=== PATIENT | female | born 1970 | race Hispanic/Latino ===

== ENCOUNTER 2017-11-04 20:43 | Inpatient (IN) | payer OTHER ==
[~2017-11-04] VITALS: Ht 162.6 cm; Wt 73.9 kg
[2017-11-04 21:16] LABS: BASOPHILS % (AUTO) 1.2 % (0.0-5.0); EOSINOPHILS % (AUTO) 0.7 % (0.0-8.0); HEMATOCRIT 34.3 % (36-48); LYMPHOCYTES % (AUTO) 25.3 % (21.0-51.0); MEAN CORPUSCULAR HEMOGLOBIN 29.1 pg (27.0-33.0); MEAN CORPUSCULAR HGB CONC 34.4 g/dL (32.0-36.0); MEAN CORPUSCULAR VOLUME 84.4 fL (79-99); MONOCYTES % (AUTO) 9.1 % (3.0-13.0); NEUTROPHILS % (AUTO) 63.7 % (40.0-77.0); PLATELET COUNT (AUTO) 418 K/uL (130-400); RED BLOOD CELL COUNT(AUTO) 4.06 MIL/uL (4.00-5.50); RED CELL DISTRIBUTION WIDTH 12.7 % (11.0-15.5); WHITE BLOOD COUNT (AUTO) 10.1 K/uL (4.8-10.8)
[2017-11-04 21:28] LABS: BILIRUBIN,URINE Negative (NEGATIVE); COLOR,URINE Yellow (YELLOW); GLUCOSE, URINE (UA) >=1000 mg/dL (NEGATIVE); KETONES,URINE 15 mg/dL (NEGATIVE); LEUKOCYTE ESTERASE ,URINE Moderate (NEGATIVE); NITRATE,URINE Negative (NEGATIVE); OCCULT BLOOD,URINE Negative (NEGATIVE); PH,URINE 5.5 (5.0-8.0); PROTEIN,URINE Trace (NEGATIVE)
[2017-11-04 21:33] LABS: INR 1.08 (0.85-1.15); PARTIAL THROMBOPLASTIN TIME 29.8 SEC (26.3-35.5); PROTHROMBIN TIME 11.3 SEC (9.6-11.6)
[2017-11-04 21:41] LABS: APPEARANCE,URINE SLIGHTLY CLOUDY (CLEAR)
[2017-11-04] MEDS ORDERED: SODIUM CHLORIDE 0.9% 1000ML 2,000 ML IV ONE (21:43)
[2017-11-04] MEDS ORDERED: ONDANSETRON HCL 4 MG/2 ML VIAL ONE (21:43)
[2017-11-04] MEDS ORDERED: ACETAMINOPHEN 325 MG TAB ONE (21:43)
[2017-11-04 21:50] LABS: CARBON DIOXIDE 27 mmol/L (21-32); CHLORIDE 93 mmol/L (101-111); CREATININE 0.7 mg/dL (0.5-1.5); GLOMERULAR FILTR. RATE CALC 95 mL/min (>60); GLUCOSE,RANDOM 296 mg/dL (70-105); POTASSIUM 3.4 mmol/L (3.5-5.1); SODIUM SERUM 133 mmol/L (136-145); UREA NITROGEN, BLOOD 8 mg/dL (7-18)
[2017-11-04 22:04] LABS: ALANINE AMINOTRANSFERASE 49 U/L (12-78); ALBUMIN 1.8 g/dL (3.5-5.0); ASPARTATE AMINOTRANSFERASE 35 U/L (10-37); BILIRUBIN,TOTAL 0.5 mg/dL (0.2-1.0); CREATINE KINASE MB < 0.5 ng/mL (0.5-3.6); CREATINE KINASE, TOTAL 22 U/L (21-232); MYOGLOBIN 22 ng/mL (10-92); TOTAL PROTEIN, SERUM 9.4 g/dL (6.0-8.3); TROPONIN I < 0.04 ng/mL (0.00-0.06)
[2017-11-04 22:19] LABS: BACTERIA,URINE Few /HPF (None Seen); RBC,URINE 0-1 /HPF (0-1); YEAST,URINE BUDDING Rare /HPF (None Seen)
[2017-11-04 22:20] LABS: MUCUS,URINE Rare LPF (None Seen); SQUAMOUS EPITHELIAL CELL,UR Few /LPF (0-2)
[2017-11-04] MEDS ORDERED: IOPAMIDOL-370 75 ML VIAL IV ONE (23:33)
[2017-11-05] VITALS (9 sets, daily range): BP systolic 115–155; BP diastolic 71–84
[2017-11-05] MEDS ORDERED: MORPHINE SULFATE 4 MG/1ML SYG ONE (00:33)
[2017-11-05] MEDS ORDERED: CEFTRIAXONE SODIUM 1 GM ONE (01:08)
[2017-11-05] MEDS ORDERED: WATER FOR INJECTION,STERILE 20 ML VIAL ONE (01:09)
[2017-11-05] MEDS ORDERED: METO25TA6 PO (04:03)
[2017-11-05] MEDS ORDERED: INSLAN SQ (04:03)
[2017-11-05] MEDS ORDERED: METF10004 PO (04:03)
[2017-11-05] MEDS ORDERED: ONDANSETRON HCL 4 MG/2 ML VIAL ONE (08:12)
[2017-11-05] MEDS ORDERED: DiphenhydrAMINE HCL 50 MG/ML VIAL IVP PRN (08:15)
[2017-11-05] MEDS ORDERED: DEXTROSE 50%-WATER 50 ML DISP.SYRIN IV PRN (08:15)
[2017-11-05] MEDS ORDERED: GUAIFENESIN SUGAR-FREE 100 MG/5 ML UDCUP PO PRN (08:15)
[2017-11-05] MEDS ORDERED: POTASSIUM CHLORIDE 10% ELIXIR 20 MEQ/15 ML UDCUP PO PRN (08:15)
[2017-11-05] MEDS ORDERED: MAG HYDROX/AL HYDROX/SIMETH ES 30 ML SUSP UDCUP PO PRN (08:15)
[2017-11-05] MEDS ORDERED: LACTULOSE 20 GM/30 ML UDCUP PO PRN (08:15)
[2017-11-05] MEDS ORDERED: ACETAMINOPHEN 325 MG TAB PO PRN (08:15)
[2017-11-05] MEDS ORDERED: DIPHENHYDRAMINE HCL 25 MG CAPSULE PO PRN (08:15)
[2017-11-05] MEDS ORDERED: CLONIDINE HCL 0.1 MG TABLET PO PRN (08:15)
[2017-11-05] MEDS ORDERED: GLUCAGON 1MG KIT 1 MG ML IM PRN (08:15)
[2017-11-05] MEDS ORDERED: ZOLPIDEM TARTRATE 5 MG TAB PO PRN (08:15)
[2017-11-05] MEDS ORDERED: NITROGLYCERIN 0.4 MG SL TAB SL PRN (08:15)
[2017-11-05] MEDS: PANTOPRAZOLE 40 MG/VIAL IVP SCH (09:00)
[2017-11-05] MEDS: MEPERIDINE-PF 25 MG/ML SYG IV PRN ×3 (11:56→20:01)
[2017-11-05] MEDS: INSULIN R PO SSI SQ SCH ×3 (12:03→20:53)
[2017-11-05] MEDS ORDERED: SODIUM CHLORIDE 0.9% 1000ML 1,000 ML IV ONE (17:25)
[2017-11-05] MEDS: ACETAMINOPHEN 325 MG TAB PO PRN (23:39)
[2017-11-06] MEDS: MEPERIDINE-PF 25 MG/ML SYG IV PRN ×5 (00:01→20:51)
[2017-11-06] MEDS: SODIUM CHLORIDE 0.9% 1000ML 1,000 ML IV SCH ×3 (00:57→21:20)
[2017-11-06 03:37] VITALS: BP 130/78
[2017-11-06 04:36] LABS: HEMATOCRIT 32.8 % (36-48); MEAN CORPUSCULAR HEMOGLOBIN 29.1 pg (27.0-33.0); MEAN CORPUSCULAR HGB CONC 34.4 g/dL (32.0-36.0); MEAN CORPUSCULAR VOLUME 84.7 fL (79-99); PLATELET COUNT (AUTO) 378 K/uL (130-400); RED BLOOD CELL COUNT(AUTO) 3.87 MIL/uL (4.00-5.50); RED CELL DISTRIBUTION WIDTH 12.8 % (11.0-15.5); WHITE BLOOD COUNT (AUTO) 16.5 K/uL (4.8-10.8)
[2017-11-06] MEDS: ONDANSETRON HCL 4 MG/2 ML VIAL IVP PRN (04:42)
[2017-11-06 04:50] LABS: CREATININE 0.5 mg/dL (0.5-1.5); POTASSIUM 3.6 mmol/L (3.5-5.1)
[2017-11-06 05:38] LABS: BAND NEUTROPHILS % (MANUAL) 25 % (0-2); LYMPHOCYTES % (MANUAL) 12 % (22-44); MAN.DIFF COMMENT-IMPRESSION MANUAL DIFFERENTIAL; MONOCYTES % (MANUAL) 7 % (2-9); PLATELET MORPHOLOGY COMMENT ADEQUATE; SEGMENTED NEUTROPHILS % 56 % (40-70)
[2017-11-06] MEDS: INSULIN R PO SSI SQ SCH ×4 (06:02→20:36)
[2017-11-06 07:00] VITALS: BP 115/68
[2017-11-06] MEDS: PANTOPRAZOLE 40 MG/VIAL IVP SCH (09:47)
[2017-11-06 11:00] VITALS: BP 123/74
[2017-11-06] MEDS ORDERED: CEFTRIAXONE 1GM/D5W 50ML 50 ML IV SCH (13:15)
[2017-11-06] MEDS ORDERED: METRONIDAZOLE 500MG/100ML BAG 100 ML IV SCH (14:00)
[2017-11-06 16:00] VITALS: BP 125/69
[2017-11-06] MEDS: CEFTRIAXONE SODIUM 1 GM IVP SCH (16:13)
[2017-11-06 19:55] VITALS: BP 131/74
[2017-11-06 23:40] VITALS: BP 122/66
[2017-11-07] MEDS: METRONIDAZOLE 500MG/100ML BAG 100 ML IV SCH ×4 (00:19→21:10)
[2017-11-07 04:23] VITALS: BP 126/71
[2017-11-07] MEDS: MEPERIDINE HCL/PF 25 MG/0.5 ML AMPUL IV PRN ×2 (04:23→14:22)
[2017-11-07] MEDS: ONDANSETRON HCL 4 MG/2 ML VIAL IVP PRN ×2 (04:23→14:22)
[2017-11-07] MEDS: INSULIN R PO SSI SQ SCH ×4 (06:27→21:09)
[2017-11-07] MEDS: POTASSIUM CHLORIDE 20 MEQ ERTAB PO PRN (06:50)
[2017-11-07 07:00] VITALS: BP 119/68
[2017-11-07] MEDS: SODIUM CHLORIDE 0.9% 1000ML 1,000 ML IV SCH ×3 (09:21→21:21)
[2017-11-07] MEDS: PANTOPRAZOLE 40 MG/VIAL IVP SCH (09:21)
[2017-11-07 11:00] VITALS: BP 129/76
[2017-11-07] MEDS: CEFTRIAXONE SODIUM 1 GM IVP SCH (14:22)
[2017-11-07 16:00] VITALS: BP 116/71
[2017-11-07 19:29] VITALS: BP 110/67
[2017-11-07 23:25] VITALS: BP 123/76
[2017-11-08] MEDS: MEPERIDINE HCL/PF 25 MG/0.5 ML AMPUL IV PRN ×4 (02:12→22:45)
[2017-11-08] MEDS: ONDANSETRON HCL 4 MG/2 ML VIAL IVP PRN ×3 (02:12→22:41)
[2017-11-08 04:52] VITALS: BP 117/70
[2017-11-08] MEDS: METRONIDAZOLE 500MG/100ML BAG 100 ML IV SCH ×3 (05:25→20:46)
[2017-11-08 05:45] LABS: BASOPHILS % (AUTO) 0.7 % (0.0-5.0); EOSINOPHILS % (AUTO) 0.4 % (0.0-8.0); HEMATOCRIT 29.4 % (36-48); MEAN CORPUSCULAR HEMOGLOBIN 28.4 pg (27.0-33.0); MEAN CORPUSCULAR HGB CONC 32.9 g/dL (32.0-36.0); MEAN CORPUSCULAR VOLUME 86.1 fL (79-99); MONOCYTES % (AUTO) 5.4 % (3.0-13.0); NEUTROPHILS % (AUTO) 81.5 % (40.0-77.0); PLATELET COUNT (AUTO) 364 K/uL (130-400); RED BLOOD CELL COUNT(AUTO) 3.41 MIL/uL (4.00-5.50); WHITE BLOOD COUNT (AUTO) 15.4 K/uL (4.8-10.8)
[2017-11-08 06:06] LABS: BILIRUBIN,TOTAL 0.3 mg/dL (0.2-1.0); CREATININE 0.4 mg/dL (0.5-1.5); POTASSIUM 3.3 mmol/L (3.5-5.1); TOTAL PROTEIN, SERUM 6.4 g/dL (6.0-8.3)
[2017-11-08] MEDS: INSULIN R PO SSI SQ SCH ×4 (06:31→20:50)
[2017-11-08] MEDS: LIDOCAINE HCL-MPF 1% 2ML VIAL IJ PRN (06:31)
[2017-11-08] MEDS: POTASSIUM CHLORIDE 20MEQ/100ML 100 ML IV PRN (06:31)
[2017-11-08 08:01] VITALS: BP 130/77
[2017-11-08] MEDS: PANTOPRAZOLE 40 MG/VIAL IVP SCH (09:00)
[2017-11-08] MEDS: POTASSIUM CHLORIDE 20 MEQ ERTAB PO PRN (10:40)
[2017-11-08 11:31] VITALS: BP 132/78
[2017-11-08] MEDS ORDERED: IOPAMIDOL-370 75 ML VIAL IV ONE (14:33)
[2017-11-08] MEDS: CEFTRIAXONE SODIUM 1 GM IVP SCH (15:45)
[2017-11-08] MEDS: SODIUM CHLORIDE 0.9% 1000ML 1,000 ML IV SCH ×2 (15:46→22:46)
[2017-11-08 16:52] VITALS: BP 145/80
[2017-11-08] MEDS: PANTOPRAZOLE SODIUM 40 MG TABLET.DR PO SCH (17:36)
[2017-11-08] MEDS ORDERED: LORAZEPAM 2 MG/ML 1 ML VIAL IVP PRN (18:15)
[2017-11-08 20:17] VITALS: BP 139/77
[2017-11-08 23:55] VITALS: BP 139/73
[2017-11-09] MEDS: ACETAMINOPHEN 325 MG TAB PO PRN ×2 (01:11→17:04)
[2017-11-09 03:43] VITALS: BP 126/74
[2017-11-09] MEDS: METRONIDAZOLE 500MG/100ML BAG 100 ML IV SCH (05:19)
[2017-11-09] MEDS: POTASSIUM CHLORIDE 20 MEQ ERTAB PO PRN ×2 (06:18→10:30)
[2017-11-09] MEDS: INSULIN R PO SSI SQ SCH ×4 (06:19→21:07)
[2017-11-09 08:00] VITALS: BP 134/77
[2017-11-09] MEDS: PANTOPRAZOLE SODIUM 40 MG TABLET.DR PO SCH (10:29)
[2017-11-09] MEDS: MEPERIDINE HCL/PF 25 MG/0.5 ML AMPUL IV PRN ×2 (10:29→21:12)
[2017-11-09 11:16] VITALS: BP 136/77
[2017-11-09] MEDS: SODIUM CHLORIDE 0.9% 1000ML 1,000 ML IV SCH ×2 (12:17→20:58)
[2017-11-09 16:00] VITALS: BP 137/80
[2017-11-09] MEDS: CEFTRIAXONE SODIUM 1 GM IVP SCH (17:04)
[2017-11-09 20:00] VITALS: BP 119/71
[2017-11-09] MEDS: ONDANSETRON HCL 4 MG/2 ML VIAL IVP PRN (21:11)
[2017-11-09] MEDS: IPRATROPIUM/ALBUTEROL SULFATE 3 ML SOLUTION IH SCH (22:52)
[2017-11-09] MEDS ORDERED: IOPAMIDOL-370 100 ML VIAL IV ONE (23:11)
[2017-11-09 23:55] VITALS: BP 134/82
[2017-11-10] MEDS: MEPERIDINE HCL/PF 25 MG/0.5 ML AMPUL IV PRN ×5 (02:10→22:45)
[2017-11-10] MEDS: IPRATROPIUM/ALBUTEROL SULFATE 3 ML SOLUTION IH SCH ×6 (02:19→23:11)
[2017-11-10 04:00] VITALS: BP 131/74
[2017-11-10 05:44] LABS: BASOPHILS % (AUTO) 0.4 % (0.0-5.0); EOSINOPHILS % (AUTO) 0.4 % (0.0-8.0); HEMATOCRIT 28.6 % (36-48); LYMPHOCYTES % (AUTO) 10.9 % (21.0-51.0); MEAN CORPUSCULAR HEMOGLOBIN 28.4 pg (27.0-33.0); MEAN CORPUSCULAR HGB CONC 33.3 g/dL (32.0-36.0); MEAN CORPUSCULAR VOLUME 85.2 fL (79-99); MONOCYTES % (AUTO) 9.5 % (3.0-13.0); NEUTROPHILS % (AUTO) 78.8 % (40.0-77.0); PLATELET COUNT (AUTO) 328 K/uL (130-400); RED BLOOD CELL COUNT(AUTO) 3.35 MIL/uL (4.00-5.50); WHITE BLOOD COUNT (AUTO) 8.5 K/uL (4.8-10.8)
[2017-11-10] MEDS: INSULIN R PO SSI SQ SCH ×4 (05:57→22:13)
[2017-11-10 06:00] LABS: ALBUMIN 1.1 g/dL (3.5-5.0); BILIRUBIN,TOTAL 0.2 mg/dL (0.2-1.0); CREATININE 0.4 mg/dL (0.5-1.5); POTASSIUM 3.6 mmol/L (3.5-5.1); TOTAL PROTEIN, SERUM 6.6 g/dL (6.0-8.3)
[2017-11-10] MEDS: POTASSIUM CHLORIDE 20 MEQ ERTAB PO PRN ×2 (06:27→09:34)
[2017-11-10] MEDS: SODIUM CHLORIDE 0.9% 1000ML 1,000 ML IV SCH ×2 (06:27→14:03)
[2017-11-10 07:30] VITALS: BP 133/70
[2017-11-10] MEDS: PANTOPRAZOLE SODIUM 40 MG TABLET.DR PO SCH (07:44)
[2017-11-10 12:00] VITALS: BP 103/61
[2017-11-10] MEDS: CEFTRIAXONE SODIUM 1 GM IVP SCH (14:03)
[2017-11-10] MEDS ORDERED: LEVO750T46 PO (14:14)
[2017-11-10 16:00] VITALS: BP 121/64
[2017-11-10 19:54] VITALS: BP 128/74
[2017-11-10] MEDS: ACETAMINOPHEN 325 MG TAB PO PRN (20:52)
[2017-11-10 23:42] VITALS: BP 131/70
[2017-11-11] MEDS: IPRATROPIUM/ALBUTEROL SULFATE 3 ML SOLUTION IH SCH ×6 (02:52→21:44)
[2017-11-11] MEDS: SODIUM CHLORIDE 0.9% 1000ML 1,000 ML IV SCH ×2 (03:18→13:21)
[2017-11-11 04:00] VITALS: BP 138/75
[2017-11-11 05:34] LABS: BASOPHILS % (AUTO) 0.4 % (0.0-5.0); EOSINOPHILS % (AUTO) 0.5 % (0.0-8.0); HEMATOCRIT 27.6 % (36-48); LYMPHOCYTES % (AUTO) 14.8 % (21.0-51.0); MEAN CORPUSCULAR HEMOGLOBIN 28.8 pg (27.0-33.0); MEAN CORPUSCULAR HGB CONC 33.8 g/dL (32.0-36.0); MEAN CORPUSCULAR VOLUME 85.2 fL (79-99); MONOCYTES % (AUTO) 10.1 % (3.0-13.0); NEUTROPHILS % (AUTO) 74.2 % (40.0-77.0); PLATELET COUNT (AUTO) 335 K/uL (130-400); RED BLOOD CELL COUNT(AUTO) 3.24 MIL/uL (4.00-5.50); RED CELL DISTRIBUTION WIDTH 13.2 % (11.0-15.5); WHITE BLOOD COUNT (AUTO) 9.7 K/uL (4.8-10.8)
[2017-11-11 05:53] LABS: ALBUMIN 1.1 g/dL (3.5-5.0); BILIRUBIN,TOTAL 0.2 mg/dL (0.2-1.0); CREATININE 0.5 mg/dL (0.5-1.5); POTASSIUM 3.5 mmol/L (3.5-5.1); TOTAL PROTEIN, SERUM 6.4 g/dL (6.0-8.3)
[2017-11-11] MEDS: ONDANSETRON HCL 4 MG/2 ML VIAL IVP PRN (06:25)
[2017-11-11] MEDS: MEPERIDINE HCL/PF 25 MG/0.5 ML AMPUL IV PRN ×3 (06:25→20:37)
[2017-11-11] MEDS: INSULIN R PO SSI SQ SCH ×4 (06:25→21:32)
[2017-11-11] MEDS: LIDOCAINE HCL-MPF 1% 2ML VIAL IJ PRN (07:19)
[2017-11-11] MEDS: POTASSIUM CHLORIDE 20MEQ/100ML 100 ML IV PRN (07:20)
[2017-11-11 07:45] VITALS: BP 128/73
[2017-11-11] MEDS: PANTOPRAZOLE SODIUM 40 MG TABLET.DR PO SCH (09:00)
[2017-11-11 12:05] VITALS: BP 143/77
[2017-11-11] MEDS ORDERED: FLU VACC QS2017-18 36MOS UP/PF 60 MCG/0.5 ML ML IM SCH (12:45)
[2017-11-11 16:00] VITALS: BP 125/70
[2017-11-11] MEDS: CEFTRIAXONE SODIUM 1 GM IVP SCH (16:10)
[2017-11-11 20:00] VITALS: BP 129/77
[2017-11-11] MEDS: ACETAMINOPHEN 325 MG TAB PO PRN (23:23)
[2017-11-12] VITALS (7 sets, daily range): BP systolic 119–144; BP diastolic 68–80
[2017-11-12] MEDS: IPRATROPIUM/ALBUTEROL SULFATE 3 ML SOLUTION IH SCH ×6 (01:52→22:05)
[2017-11-12] MEDS: ONDANSETRON HCL 4 MG/2 ML VIAL IVP PRN ×2 (04:59→17:23)
[2017-11-12] MEDS: MEPERIDINE HCL/PF 25 MG/0.5 ML AMPUL IV PRN ×4 (05:00→22:49)
[2017-11-12] MEDS: INSULIN R PO SSI SQ SCH ×4 (06:10→21:21)
[2017-11-12] MEDS: PANTOPRAZOLE SODIUM 40 MG TABLET.DR PO SCH (10:24)
[2017-11-12] MEDS: CEFTRIAXONE SODIUM 1 GM IVP SCH (16:18)
[2017-11-12] MEDS: ACETAMINOPHEN 325 MG TAB PO PRN (22:48)
[2017-11-13] MEDS: IPRATROPIUM/ALBUTEROL SULFATE 3 ML SOLUTION IH SCH ×4 (03:08→14:47)
[2017-11-13 04:11] VITALS: BP 135/76
[2017-11-13] MEDS: INSULIN R PO SSI SQ SCH ×3 (06:44→16:46)
[2017-11-13] MEDS: MEPERIDINE HCL/PF 25 MG/0.5 ML AMPUL IV PRN ×2 (07:10→13:08)
[2017-11-13 08:00] VITALS: BP 128/72
[2017-11-13] MEDS: PANTOPRAZOLE SODIUM 40 MG TABLET.DR PO SCH (08:41)
[2017-11-13 11:56] VITALS: BP 122/75
[2017-11-13] MEDS: CEFTRIAXONE SODIUM 1 GM IVP SCH (14:29)
[2017-11-13 16:00] VITALS: BP 121/69
== END 2017-11-13 18:50 | disposition home or self-care (01) | DRG 871 ==
LOC: EDH 20:43 → EDHIP 20:44 → OBSVTOIN 20:44 → 4CH 11-05 02:35
PROVIDERS: ADMIT Family Medicine; ATTEND Family Medicine
PROC: 0F913ZX Drainage of Right Lobe Liver, Percutaneous Approach, Diagnostic (ICD-10-PCS; principal; 2017-11-05)
PROC: 0F9130Z Drainage of Right Lobe Liver with Drainage Device, Percutaneous Approach (ICD-10-PCS; 2017-11-08)
PROC: 3E0234Z Introduction of Serum, Toxoid and Vaccine into Muscle, Percutaneous Approach (ICD-10-PCS; 2017-11-11)
DX: A41.9 Sepsis, unspecified organism (principal); K75.0 Abscess of liver; R16.0 Hepatomegaly, not elsewhere classified; E11.9 Type 2 diabetes mellitus without complications; B96.1 Klebsiella pneumoniae [K. pneumoniae] as the cause of diseases classified elsewhere; I10 Essential (primary) hypertension; E66.9 Obesity, unspecified; Z90.49 Acquired absence of other specified parts of digestive tract; Z68.28 Body mass index [BMI] 28.0-28.9, adult; Z23 Encounter for immunization
CPT/HCPCS: 36415; 71045; 71275; 74177; 76705; 77012; 80048; 80053; 81001; 82105; 82550; 82553; 82948; 83605; 83874; 84132; 84484; 85025; 85610; 85730; 87040; 87071; 87076; 87088; 87205; 87804; 88108; 88305; 93005; 94640; 94664; A4218; C9113; G0008; J0696; J1815; J2175; J2270; J2405; J3480; J3490; J7030; Q2038; Q9967

== ENCOUNTER 2017-11-22 09:04 | Emergency (ER) | payer OTHER ==
[~2017-11-22 09:04] MED LIST: INSLAN SQ; LEVO750T46 PO; METF10004 PO; METO25TA6 PO
[2017-11-22 11:18] LABS: BASOPHILS % (AUTO) 0.7 % (0.0-5.0); EOSINOPHILS % (AUTO) 1.6 % (0.0-8.0); HEMATOCRIT 33.2 % (36-48); LYMPHOCYTES % (AUTO) 29.2 % (21.0-51.0); MEAN CORPUSCULAR HEMOGLOBIN 28.2 pg (27.0-33.0); MEAN CORPUSCULAR HGB CONC 33.9 g/dL (32.0-36.0); MONOCYTES % (AUTO) 10.2 % (3.0-13.0); NEUTROPHILS % (AUTO) 58.3 % (40.0-77.0); PLATELET COUNT (AUTO) 537 K/uL (130-400); RED CELL DISTRIBUTION WIDTH 14.3 % (11.0-15.5); WHITE BLOOD COUNT (AUTO) 6.7 K/uL (4.8-10.8)
[2017-11-22 11:28] LABS: CREATININE 0.6 mg/dL (0.5-1.5); POTASSIUM 3.8 mmol/L (3.5-5.1)
[2017-11-22 11:32] LABS: ALBUMIN 1.9 g/dL (3.5-5.0); BILIRUBIN,TOTAL 0.3 mg/dL (0.2-1.0); TOTAL PROTEIN, SERUM 8.8 g/dL (6.0-8.3)
[2017-11-22 11:38] LABS: INR 1.03 (0.85-1.15); PROTHROMBIN TIME 10.8 SEC (9.6-11.6)
[2017-11-22] MEDS ORDERED: ONDANSETRON HCL 4 MG/2 ML VIAL ONE (14:43)
[2017-11-22] MEDS ORDERED: MORPHINE SULFATE 2 MG/ML 1ML SYG ONE (14:43)
[2017-11-22] MEDS ORDERED: HEPARIN SODIUM 1000UNIT/ML 10ML VIAL ONE (14:48)
[2017-11-22] MEDS ORDERED: ISOVUE-300 100 ML VIAL IV ONE (14:48)
[2017-11-22] MEDS ORDERED: LIDOCAINE HCL 1% 20 ML VIAL ONE (14:48)
[2017-11-22] MEDS ORDERED: MORPHINE SULFATE 4 MG/1ML SYG ONE (15:58)
== END 2017-11-22 18:24 | disposition home or self-care (01) ==
LOC: EDH 09:04
DX: T85.698A Other mechanical complication of other specified internal prosthetic devices, implants and grafts, initial encounter (principal); K75.0 Abscess of liver; E11.9 Type 2 diabetes mellitus without complications; Z98.890 Other specified postprocedural states
CPT/HCPCS: 36415; 49423; 49424; 74150; 75984; 76080; 80053; 85025; 85610; 85730; 96374; 96375; 96376; 99285; C1729; C1769; J1644; J2270; J2405; Q9967

== ENCOUNTER 2017-12-02 18:50 | Inpatient (IN) | payer OTHER ==
[~2017-12-02] VITALS: Ht 167.6 cm; Wt 71.9 kg
[2017-12-02] MEDS ORDERED: SODIUM CHLORIDE 0.9% 1000ML 1,000 ML IV ONE (19:35)
[2017-12-02 20:06] LABS: APPEARANCE,URINE Clear (CLEAR); BILIRUBIN,URINE Negative (NEGATIVE); COLOR,URINE Yellow (YELLOW); GLUCOSE, URINE (UA) 250 mg/dL (NEGATIVE); KETONES,URINE Trace mg/dL (NEGATIVE); LEUKOCYTE ESTERASE ,URINE Small (NEGATIVE); NITRATE,URINE Negative (NEGATIVE); OCCULT BLOOD,URINE Small (NEGATIVE); PH,URINE 6.5 (5.0-8.0); PROTEIN,URINE POS 1+ (NEGATIVE)
[2017-12-02 20:12] LABS: BACTERIA,URINE Rare /HPF (None Seen); RBC,URINE 0-1 /HPF (0-1); WBC,URINE 0-1 /HPF (0-1)
[2017-12-02 20:35] LABS: BASOPHILS % (AUTO) 0.8 % (0.0-5.0); EOSINOPHILS % (AUTO) 1.6 % (0.0-8.0); HEMATOCRIT 34.9 % (36-48); LYMPHOCYTES % (AUTO) 35.6 % (21.0-51.0); MEAN CORPUSCULAR HEMOGLOBIN 27.8 pg (27.0-33.0); MEAN CORPUSCULAR HGB CONC 33.9 g/dL (32.0-36.0); MONOCYTES % (AUTO) 6.6 % (3.0-13.0); NEUTROPHILS % (AUTO) 55.4 % (40.0-77.0); NUCLEATED RED BLOOD CELLS 0.1 % (0.0-0.19); PLATELET COUNT (AUTO) 484 K/uL (130-400); RED BLOOD CELL COUNT(AUTO) 4.26 MIL/uL (4.00-5.50); RED CELL DISTRIBUTION WIDTH 14.9 % (11.0-15.5); WHITE BLOOD COUNT (AUTO) 6.3 K/uL (4.8-10.8)
[2017-12-02 20:50] LABS: CREATININE 0.7 mg/dL (0.5-1.5); POTASSIUM 3.6 mmol/L (3.5-5.1)
[2017-12-02 20:51] LABS: INR 1.07 (0.85-1.15); PARTIAL THROMBOPLASTIN TIME 25.9 SEC (26.3-35.5); PROTHROMBIN TIME 11.2 SEC (9.6-11.6)
[2017-12-02 20:55] LABS: ALBUMIN 2.3 g/dL (3.5-5.0); BILIRUBIN,DIRECT 0.1 mg/dL (0.0-0.3); BILIRUBIN,TOTAL 0.3 mg/dL (0.2-1.0); TOTAL PROTEIN, SERUM 9.8 g/dL (6.0-8.3)
[2017-12-02] MEDS ORDERED: IOPAMIDOL-370 75 ML VIAL IV ONE (22:14)
[2017-12-02] MEDS ORDERED: MORPHINE SULFATE 4 MG/1ML SYG ONE (23:26)
[2017-12-02] MEDS ORDERED: MEROPENEM 1 GM VIAL ONE (23:26)
[2017-12-02] MEDS ORDERED: SODIUM CHLORIDE 0.9% 250 ML IV ONE (23:27)
[2017-12-03] VITALS (8 sets, daily range): BP systolic 96–154; BP diastolic 67–92
[2017-12-03] MEDS ORDERED: LEVO750T46 PO (01:49)
[2017-12-03] MEDS ORDERED: INSLAN SQ (01:49)
[2017-12-03] MEDS ORDERED: SODIUM CHLORIDE 0.9% 10 ML VIAL IVP SCH (07:00)
[2017-12-03] MEDS ORDERED: DiphenhydrAMINE HCL 50 MG/ML VIAL IVP PRN (07:00)
[2017-12-03] MEDS ORDERED: LACTULOSE 20 GM/30 ML UDCUP PO PRN (07:00)
[2017-12-03] MEDS ORDERED: GUAIFENESIN-DM 200/20 MG 10 ML PO PRN (07:00)
[2017-12-03] MEDS ORDERED: NITROGLYCERIN 0.4 MG SL TAB SL PRN (07:00)
[2017-12-03] MEDS ORDERED: ZOLPIDEM TARTRATE 5 MG TAB PO PRN (07:00)
[2017-12-03] MEDS ORDERED: DIPHENHYDRAMINE HCL 25 MG CAPSULE PO PRN (07:00)
[2017-12-03] MEDS ORDERED: ACETAMINOPHEN 325 MG TAB PO PRN ×2 (07:00)
[2017-12-03] MEDS ORDERED: MAG HYDROX/AL HYDROX/SIMETH ES 30 ML SUSP UDCUP PO PRN (07:00)
[2017-12-03] MEDS ORDERED: CLONIDINE HCL 0.1 MG TABLET PO PRN (07:00)
[2017-12-03] MEDS ORDERED: GUAIFENESIN SUGAR-FREE 100 MG/5 ML UDCUP PO PRN (07:00)
[2017-12-03] MEDS: PANTOPRAZOLE SODIUM 40 MG TABLET.DR PO SCH (07:12)
[2017-12-03] MEDS: ONDANSETRON HCL 4 MG/2 ML VIAL IVP PRN (07:13)
[2017-12-03] MEDS ORDERED: VANCOMYCIN 1.75 GM in SODIUM CHLORIDE 0.9% 250 ML IV SCH (08:15)
[2017-12-03] MEDS: HYDROCODONE/ACETAMINOPHEN 5/325 MG TAB PO PRN ×3 (08:27→20:31)
[2017-12-03] MEDS: MEROPENEM 1 GM VIAL IVP SCH ×3 (08:28→23:34)
[2017-12-03] MEDS ORDERED: ISOVUE-300 100 ML VIAL IV ONE (13:02)
[2017-12-03] MEDS ORDERED: LIDOCAINE HCL 1% MDV 50ML VIAL ONE (13:02)
[2017-12-03] MEDS ORDERED: FENTANYL CITRATE PF 50 MCG/1 ML 2ML VIAL ONE (15:16)
[2017-12-03] MEDS ORDERED: DEXTROSE 50%-WATER 50 ML DISP.SYRIN IV PRN (16:45)
[2017-12-03] MEDS ORDERED: GLUCAGON 1MG KIT 1 MG ML IM PRN (16:45)
[2017-12-03] MEDS: IBUPROFEN 800 MG TAB PO PRN (17:26)
[2017-12-03] MEDS: METOPROLOL TARTRATE 25 MG TAB PO SCH ×2 (17:31→20:29)
[2017-12-03] MEDS: INSULIN HUMULIN R 100 UNIT/ML 3ML SQ SCH (20:28)
[2017-12-03] MEDS ORDERED: METOPROLOL TARTRATE 25 MG TAB PO SCH (21:00)
[2017-12-04] VITALS (15 sets, daily range): BP systolic 90–140; BP diastolic 55–79
[2017-12-04 04:51] LABS: BASOPHILS % (AUTO) 0.5 % (0.0-5.0); EOSINOPHILS % (AUTO) 0.8 % (0.0-8.0); HEMATOCRIT 31.6 % (36-48); LYMPHOCYTES % (AUTO) 3.8 % (21.0-51.0); MEAN CORPUSCULAR HEMOGLOBIN 27.6 pg (27.0-33.0); MEAN CORPUSCULAR HGB CONC 33.5 g/dL (32.0-36.0); MEAN CORPUSCULAR VOLUME 82.4 fL (79-99); MONOCYTES % (AUTO) 3.7 % (3.0-13.0); NEUTROPHILS % (AUTO) 91.2 % (40.0-77.0); PLATELET COUNT (AUTO) 328 K/uL (130-400); RED BLOOD CELL COUNT(AUTO) 3.83 MIL/uL (4.00-5.50); RED CELL DISTRIBUTION WIDTH 14.9 % (11.0-15.5); WHITE BLOOD COUNT (AUTO) 10.4 K/uL (4.8-10.8)
[2017-12-04 05:01] LABS: INR 1.08 (0.85-1.15); PARTIAL THROMBOPLASTIN TIME 29.6 SEC (26.3-35.5); PROTHROMBIN TIME 11.3 SEC (9.6-11.6)
[2017-12-04 05:04] LABS: ALBUMIN 1.8 g/dL (3.5-5.0); BILIRUBIN,TOTAL 0.3 mg/dL (0.2-1.0); CREATININE 0.7 mg/dL (0.5-1.5); TOTAL PROTEIN, SERUM 7.6 g/dL (6.0-8.3)
[2017-12-04] MEDS: PANTOPRAZOLE SODIUM 40 MG TABLET.DR PO SCH (05:57)
[2017-12-04] MEDS: INSULIN HUMULIN R 100 UNIT/ML 3ML SQ SCH ×4 (06:05→21:10)
[2017-12-04] MEDS ORDERED: INSLAN SQ (06:12)
[2017-12-04] MEDS: MEROPENEM 1 GM VIAL IVP SCH ×2 (08:33→18:14)
[2017-12-04] MEDS: HYDROCODONE/ACETAMINOPHEN 5/325 MG TAB PO PRN (08:40)
[2017-12-04] MEDS: METOPROLOL TARTRATE 25 MG TAB PO SCH ×2 (09:00→21:16)
[2017-12-04] MEDS ORDERED: VANCOMYCIN 500MG+NS 100ML 100 ML IV SCH (09:00)
[2017-12-05] VITALS (7 sets, daily range): BP systolic 110–135; BP diastolic 65–79
[2017-12-05] MEDS: MEROPENEM 1 GM VIAL IVP SCH ×4 (00:03→23:54)
[2017-12-05] MEDS: HYDROCODONE/ACETAMINOPHEN 5/325 MG TAB PO PRN ×2 (00:49→11:15)
[2017-12-05] MEDS: INSULIN HUMULIN R 100 UNIT/ML 3ML SQ SCH ×4 (06:16→21:30)
[2017-12-05 06:27] LABS: BASOPHILS % (AUTO) 0.9 % (0.0-5.0); EOSINOPHILS % (AUTO) 5.8 % (0.0-8.0); HEMATOCRIT 31.1 % (36-48); LYMPHOCYTES % (AUTO) 29.4 % (21.0-51.0); MEAN CORPUSCULAR HEMOGLOBIN 27.8 pg (27.0-33.0); MEAN CORPUSCULAR HGB CONC 33.9 g/dL (32.0-36.0); MEAN CORPUSCULAR VOLUME 81.8 fL (79-99); MONOCYTES % (AUTO) 9.9 % (3.0-13.0); PLATELET COUNT (AUTO) 298 K/uL (130-400); RED CELL DISTRIBUTION WIDTH 14.4 % (11.0-15.5); WHITE BLOOD COUNT (AUTO) 6.6 K/uL (4.8-10.8)
[2017-12-05] MEDS: PANTOPRAZOLE SODIUM 40 MG TABLET.DR PO SCH (06:48)
[2017-12-05 06:58] LABS: ALBUMIN 1.8 g/dL (3.5-5.0); BILIRUBIN,TOTAL 0.2 mg/dL (0.2-1.0); CREATININE 0.5 mg/dL (0.5-1.5); POTASSIUM 3.6 mmol/L (3.5-5.1); TOTAL PROTEIN, SERUM 7.4 g/dL (6.0-8.3)
[2017-12-05] MEDS: METOPROLOL TARTRATE 25 MG TAB PO SCH ×2 (08:13→20:19)
[2017-12-05] MEDS ORDERED: VANCOMYCIN 1.75 GM in SODIUM CHLORIDE 0.9% 250 ML IV SCH (11:01)
[2017-12-05] MEDS: VANCOMYCIN 0.75 GM in SODIUM CHLORIDE 0.9% 250 ML IV SCH (12:42)
[2017-12-05] MEDS ORDERED: COMPOUND IV REFRIGERATED 1 EACH IVSOLN MISC PRN (14:00)
[2017-12-05] MEDS: IBUPROFEN 800 MG TAB PO PRN (23:19)
[2017-12-06 04:00] VITALS: BP 121/79
[2017-12-06] MEDS: VANCOMYCIN 0.75 GM in SODIUM CHLORIDE 0.9% 250 ML IV SCH ×2 (05:45→12:09)
[2017-12-06] MEDS: PANTOPRAZOLE SODIUM 40 MG TABLET.DR PO SCH (05:59)
[2017-12-06] MEDS: INSULIN HUMULIN R 100 UNIT/ML 3ML SQ SCH ×4 (06:21→21:07)
[2017-12-06] MEDS ORDERED: CEFUROXIME 1.5GM+NS 100ML 100 ML IV SCH (07:45)
[2017-12-06] MEDS ORDERED: CEFUROXIME SODIUM 1.5 GM VIAL IVP SCH (08:00)
[2017-12-06] MEDS ORDERED: WATER FOR INJECTION,STERILE 20 ML VIAL IJ SCH (08:00)
[2017-12-06 08:06] VITALS: BP 141/84
[2017-12-06] MEDS: MEROPENEM 1 GM VIAL IVP SCH ×2 (08:40→16:59)
[2017-12-06 08:45] LABS: EOSINOPHILS % (AUTO) 3.9 % (0.0-8.0); HEMATOCRIT 31.3 % (36-48); LYMPHOCYTES % (AUTO) 36.8 % (21.0-51.0); MEAN CORPUSCULAR HEMOGLOBIN 27.1 pg (27.0-33.0); MEAN CORPUSCULAR HGB CONC 32.9 g/dL (32.0-36.0); MEAN CORPUSCULAR VOLUME 82.2 fL (79-99); MONOCYTES % (AUTO) 7.9 % (3.0-13.0); NEUTROPHILS % (AUTO) 50.4 % (40.0-77.0); PLATELET COUNT (AUTO) 316 K/uL (130-400); RED BLOOD CELL COUNT(AUTO) 3.81 MIL/uL (4.00-5.50); RED CELL DISTRIBUTION WIDTH 14.8 % (11.0-15.5); WHITE BLOOD COUNT (AUTO) 5.2 K/uL (4.8-10.8)
[2017-12-06] MEDS: METOPROLOL TARTRATE 25 MG TAB PO SCH ×2 (08:46→21:09)
[2017-12-06 08:54] LABS: CREATININE 0.5 mg/dL (0.5-1.5); POTASSIUM 3.8 mmol/L (3.5-5.1)
[2017-12-06 09:04] LABS: INR 1.02 (0.85-1.15); PARTIAL THROMBOPLASTIN TIME 26.8 SEC (26.3-35.5); PROTHROMBIN TIME 10.7 SEC (9.6-11.6)
[2017-12-06 11:57] VITALS: BP 117/71
[2017-12-06 16:00] VITALS: BP 129/80
[2017-12-06 20:00] VITALS: BP 135/78
[2017-12-06] MEDS: HYDROCODONE/ACETAMINOPHEN 5/325 MG TAB PO PRN (21:14)
[2017-12-06] MEDS: VANCOMYCIN 1.25 GM in SODIUM CHLORIDE 0.9% 250 ML IV SCH (23:21)
[2017-12-07] VITALS (26 sets, daily range): BP systolic 120–152; BP diastolic 66–90
[2017-12-07] MEDS: MEROPENEM 1 GM VIAL IVP SCH ×2 (01:05→09:56)
[2017-12-07 04:41] LABS: ALBUMIN 1.8 g/dL (3.5-5.0); BILIRUBIN,TOTAL 0.2 mg/dL (0.2-1.0); CREATININE 0.5 mg/dL (0.5-1.5); POTASSIUM 3.1 mmol/L (3.5-5.1); TOTAL PROTEIN, SERUM 7.2 g/dL (6.0-8.3)
[2017-12-07] MEDS: PANTOPRAZOLE SODIUM 40 MG TABLET.DR PO SCH (05:26)
[2017-12-07] MEDS: INSULIN HUMULIN R 100 UNIT/ML 3ML SQ SCH ×2 (05:55→21:00)
[2017-12-07] MEDS ORDERED: POTASSIUM CHLORIDE 10% ELIXIR 20 MEQ/15 ML UDCUP PO PRN (08:15)
[2017-12-07] MEDS ORDERED: POTASSIUM CHLORIDE 20MEQ/100ML 100 ML IV PRN (08:15)
[2017-12-07] MEDS ORDERED: LIDOCAINE HCL-MPF 1% 2ML VIAL IVP PRN (08:15)
[2017-12-07] MEDS: VANCOMYCIN 1.25 GM in SODIUM CHLORIDE 0.9% 250 ML IV SCH ×2 (09:57→21:59)
[2017-12-07] MEDS: METOPROLOL TARTRATE 25 MG TAB PO SCH ×2 (09:58→21:59)
[2017-12-07] MEDS ORDERED: OCTYL 2-CYANOACRYLATE 1 EACH TP ONE (10:01)
[2017-12-07] MEDS ORDERED: BACITRACIN 50,000 UNIT VIAL ONE ×2 (10:02→18:07)
[2017-12-07] MEDS ORDERED: NEOMY SULF/POLYMYXIN B SULFATE 1 ML AMPUL IR ONE (10:02)
[2017-12-07] MEDS: ONDANSETRON HCL 4 MG/2 ML VIAL IVP PRN (11:09)
[2017-12-07] MEDS ORDERED: ONDANSETRON HCL MDV 20ML 2 MG/ML VIAL IVP PRN ×2 (16:08→19:00)
[2017-12-07] MEDS: MEROPENEM 1 GM in SODIUM CHLORIDE 0.9% 50 ML IVP SCH (16:35)
[2017-12-07] MEDS ORDERED: MEROPENEM 1 GM VIAL ONE (16:43)
[2017-12-07] MEDS ORDERED: CEFUROXIME SODIUM 1.5 GM VIAL ONE (17:08)
[2017-12-07] MEDS ORDERED: PROPOFOL 10 MG/ML 20ML VIAL IV ONE ×2 (17:20→18:35)
[2017-12-07] MEDS ORDERED: MIDAZOLAM HCL 1 MG/ML 2ML VIAL ONE (17:21)
[2017-12-07] MEDS ORDERED: FENTANYL CITRATE PF 50 MCG/1 ML 2ML VIAL ONE (17:21)
[2017-12-07] MEDS ORDERED: ROPIVACAINE 0.2% 2MG/ML 100ML VIAL IJ ONE (18:00)
[2017-12-07] MEDS ORDERED: PHENYLEPHRINE HCL 10 MG/ML 1ML VIAL IV ONE (18:28)
[2017-12-07] MEDS ORDERED: NEOSTIGMINE METHYLSULFATE 1MG/ML IV ONE (18:28)
[2017-12-07] MEDS ORDERED: SODIUM CHLORIDE 0.9% 10 ML VIAL ONE (18:28)
[2017-12-07] MEDS ORDERED: HEPARIN SODIUM 1000UNIT/ML 10ML VIAL ONE (18:28)
[2017-12-07] MEDS ORDERED: ROCURONIUM BROMIDE 10MG/1ML 5ML VL ONE (18:28)
[2017-12-07] MEDS ORDERED: ATROPINE SULFATE 0.1 MG/ML 10 ML SYG IVP ONE (18:28)
[2017-12-07] MEDS ORDERED: EPINEPHRINE 1 MG/ML AMPULE ONE (18:28)
[2017-12-07] MEDS ORDERED: NOREPINEPHRINE BITARTRATE 1 MG/1 ML ML IV ONE (18:28)
[2017-12-07] MEDS ORDERED: EPINEPHRINE 1 MG/ML 30ML VIAL IJ ONE (18:28)
[2017-12-07] MEDS ORDERED: ROPIVACAINE 0.5% 5MG/ML 30ML IJ ONE (18:28)
[2017-12-07] MEDS ORDERED: ESMOLOL HCL 10 MG/ML 10 ML VIAL ONE (18:28)
[2017-12-07] MEDS ORDERED: GLYCOPYRROLATE 0.2 MG/ML 5 ML VIAL ONE (18:28)
[2017-12-07] MEDS: Q-PUMP 1 EACH IRRIG SCH ×2 (18:30→18:50)
[2017-12-07] MEDS: SODIUM CHLORIDE 0.9% 1000ML 1,000 ML IV SCH ×2 (18:50→21:58)
[2017-12-07] MEDS ORDERED: ACETAMINOPHEN 325 MG TAB PO PRN (19:00)
[2017-12-07] MEDS ORDERED: MAGNESIUM HYDROXIDE 30 ML/UDCUP PO PRN (19:00)
[2017-12-07] MEDS ORDERED: CEFAZOLIN 2GM / 50 ML 50 ML IV SCH (19:00)
[2017-12-07] MEDS: CEFAZOLIN SODIUM 1 GM VIAL IVP SCH (19:38)
[2017-12-07 19:52] LABS: CREATININE 0.4 mg/dL (0.5-1.5); POTASSIUM 3.8 mmol/L (3.5-5.1)
[2017-12-07 19:56] LABS: MAGNESIUM 1.4 mg/dL (1.80-2.40); PHOSPHORUS 3.5 mg/dL (2.5-4.9)
[2017-12-07 20:25] LABS: AMYLASE,BODY FLUID 15 U/L; GLUCOSE,BODY FLUID 210 mg/dL (1-40)
[2017-12-07 21:06] LABS: APPEARANCE BODY FLUID SLIGHTLY CLOUDY (CLEAR); BODY FLUID WBC 100 /cu. mm.; COLOR,BODY FLUID YELLOW (LT YELLOW); SPECIMENTYPE,BODY FLUID PLEURAL; TOTAL VOLUME,BODY FLUID 55 mL
[2017-12-07 21:07] LABS: BODY FLUID RBC 3550 /cu. mm.
[2017-12-07 21:08] LABS: BF LYMPHOCYTE 81 %; BF MESOTHELIAL 4 %
[2017-12-08] VITALS (7 sets, daily range): BP systolic 116–157; BP diastolic 67–89
[2017-12-08] MEDS ORDERED: MEROPENEM 1 GM VIAL ONE (00:08)
[2017-12-08] MEDS: MEROPENEM 1 GM in SODIUM CHLORIDE 0.9% 50 ML IVP SCH (00:10)
[2017-12-08] MEDS: CEFAZOLIN SODIUM 1 GM VIAL IVP SCH ×2 (02:17→11:46)
[2017-12-08 05:03] LABS: BASOPHILS % (AUTO) 1.2 % (0.0-5.0); EOSINOPHILS % (AUTO) 0.2 % (0.0-8.0); HEMATOCRIT 33.9 % (36-48); LYMPHOCYTES % (AUTO) 19.1 % (21.0-51.0); MEAN CORPUSCULAR HEMOGLOBIN 27.6 pg (27.0-33.0); MEAN CORPUSCULAR HGB CONC 33.9 g/dL (32.0-36.0); MEAN CORPUSCULAR VOLUME 81.4 fL (79-99); MONOCYTES % (AUTO) 7.2 % (3.0-13.0); NEUTROPHILS % (AUTO) 72.3 % (40.0-77.0); PLATELET COUNT (AUTO) 387 K/uL (130-400); RED BLOOD CELL COUNT(AUTO) 4.17 MIL/uL (4.00-5.50); RED CELL DISTRIBUTION WIDTH 14.8 % (11.0-15.5); WHITE BLOOD COUNT (AUTO) 9.8 K/uL (4.8-10.8)
[2017-12-08 05:44] LABS: CREATININE 0.5 mg/dL (0.5-1.5); MAGNESIUM 1.3 mg/dL (1.80-2.40); PHOSPHORUS 3.2 mg/dL (2.5-4.9); POTASSIUM 3.7 mmol/L (3.5-5.1)
[2017-12-08] MEDS: HYDROCODONE/ACETAMINOPHEN 5/325 MG TAB PO PRN ×3 (06:19→18:46)
[2017-12-08] MEDS: INSULIN HUMULIN R 100 UNIT/ML 3ML SQ SCH ×4 (06:38→22:02)
[2017-12-08] MEDS: TRAMADOL HCL 50 MG TABLET PO PRN ×3 (08:48→22:21)
[2017-12-08] MEDS: PANTOPRAZOLE SODIUM 40 MG TABLET.DR PO SCH (08:48)
[2017-12-08] MEDS: METOPROLOL TARTRATE 25 MG TAB PO SCH ×2 (08:48→22:01)
[2017-12-08] MEDS ORDERED: PANTOPRAZOLE 40 MG/VIAL IVP SCH (09:00)
[2017-12-08] MEDS ORDERED: IOPAMIDOL-370 75 ML VIAL IV ONE (15:45)
[2017-12-08] MEDS: Q-PUMP 1 EACH IRRIG SCH (16:50)
[2017-12-08] MEDS: VANCOMYCIN 1.25 GM in SODIUM CHLORIDE 0.9% 250 ML IV SCH ×2 (16:57→22:01)
[2017-12-08] MEDS: MEROPENEM 1 GM VIAL IVP SCH (16:57)
[2017-12-09] MEDS: MEROPENEM 1 GM VIAL IVP SCH ×3 (00:11→15:09)
[2017-12-09 03:42] VITALS: BP 129/79
[2017-12-09] MEDS: HYDROCODONE/ACETAMINOPHEN 5/325 MG TAB PO PRN (04:10)
[2017-12-09 06:34] LABS: INR 1.09 (0.85-1.15); PARTIAL THROMBOPLASTIN TIME 31.1 SEC (26.3-35.5); PROTHROMBIN TIME 11.4 SEC (9.6-11.6)
[2017-12-09] MEDS: INSULIN HUMULIN R 100 UNIT/ML 3ML SQ SCH ×4 (07:30→21:00)
[2017-12-09 07:45] VITALS: BP 152/87
[2017-12-09] MEDS: VANCOMYCIN 1.25 GM in SODIUM CHLORIDE 0.9% 250 ML IV SCH ×2 (08:51→21:07)
[2017-12-09] MEDS: PANTOPRAZOLE SODIUM 40 MG TABLET.DR PO SCH (08:51)
[2017-12-09] MEDS: METOPROLOL TARTRATE 25 MG TAB PO SCH ×2 (08:51→21:08)
[2017-12-09] MEDS: TRAMADOL HCL 50 MG TABLET PO PRN ×3 (08:51→21:08)
[2017-12-09 11:30] VITALS: BP 140/81
[2017-12-09] MEDS ORDERED: MIDAZOLAM HCL 1 MG/ML 2ML VIAL ONE (13:31)
[2017-12-09] MEDS ORDERED: FENTANYL CITRATE PF 50 MCG/1 ML 2ML VIAL ONE (13:31)
[2017-12-09 15:03] LABS: BASOPHILS % (AUTO) 0.4 % (0.0-5.0); EOSINOPHILS % (AUTO) 1.5 % (0.0-8.0); HEMATOCRIT 26.7 % (36-48); MEAN CORPUSCULAR HEMOGLOBIN 28.5 pg (27.0-33.0); MEAN CORPUSCULAR HGB CONC 35.3 g/dL (32.0-36.0); MEAN CORPUSCULAR VOLUME 80.7 fL (79-99); NEUTROPHILS % (AUTO) 72.1 % (40.0-77.0); PLATELET COUNT (AUTO) 361 K/uL (130-400); RED BLOOD CELL COUNT(AUTO) 3.31 MIL/uL (4.00-5.50); RED CELL DISTRIBUTION WIDTH 14.9 % (11.0-15.5); WHITE BLOOD COUNT (AUTO) 11.6 K/uL (4.8-10.8)
[2017-12-09] MEDS ORDERED: MAGNESIUM 2GM PREMIX 50ML 50 ML IV SCH (15:15)
[2017-12-09 16:15] VITALS: BP 134/79
[2017-12-09] MEDS: Q-PUMP 1 EACH IRRIG SCH (17:35)
[2017-12-09 19:42] VITALS: BP 141/63
[2017-12-09 23:20] VITALS: BP 115/73
[2017-12-10] MEDS: MEROPENEM 1 GM VIAL IVP SCH ×3 (00:24→16:36)
[2017-12-10 03:30] LABS: BASOPHILS % (AUTO) 0.9 % (0.0-5.0); EOSINOPHILS % (AUTO) 3.8 % (0.0-8.0); HEMATOCRIT 28.8 % (36-48); LYMPHOCYTES % (AUTO) 28.3 % (21.0-51.0); MEAN CORPUSCULAR HEMOGLOBIN 27.5 pg (27.0-33.0); MEAN CORPUSCULAR HGB CONC 34.1 g/dL (32.0-36.0); MEAN CORPUSCULAR VOLUME 80.6 fL (79-99); PLATELET COUNT (AUTO) 379 K/uL (130-400); RED BLOOD CELL COUNT(AUTO) 3.58 MIL/uL (4.00-5.50); RED CELL DISTRIBUTION WIDTH 15.1 % (11.0-15.5); WHITE BLOOD COUNT (AUTO) 9.7 K/uL (4.8-10.8)
[2017-12-10 03:38] VITALS: BP 139/79
[2017-12-10 03:45] LABS: ALBUMIN 1.7 g/dL (3.5-5.0); BILIRUBIN,TOTAL 0.5 mg/dL (0.2-1.0); CREATININE 0.4 mg/dL (0.5-1.5); MAGNESIUM 1.6 mg/dL (1.80-2.40); PHOSPHORUS 3.4 mg/dL (2.5-4.9); POTASSIUM 3.2 mmol/L (3.5-5.1); TOTAL PROTEIN, SERUM 7.3 g/dL (6.0-8.3)
[2017-12-10] MEDS: TRAMADOL HCL 50 MG TABLET PO PRN ×3 (05:00→18:39)
[2017-12-10] MEDS: INSULIN HUMULIN R 100 UNIT/ML 3ML SQ SCH ×4 (06:50→22:30)
[2017-12-10 07:51] VITALS: BP 143/84
[2017-12-10] MEDS: METOPROLOL TARTRATE 25 MG TAB PO SCH ×2 (08:56→22:35)
[2017-12-10] MEDS: PANTOPRAZOLE SODIUM 40 MG TABLET.DR PO SCH (08:56)
[2017-12-10] MEDS: POTASSIUM CHLORIDE 20 MEQ ERTAB PO PRN (08:57)
[2017-12-10] MEDS: VANCOMYCIN 1.25 GM in SODIUM CHLORIDE 0.9% 250 ML IV SCH ×2 (09:12→22:35)
[2017-12-10 12:18] VITALS: BP 121/78
[2017-12-10] MEDS ORDERED: MAGNESIUM 2GM PREMIX 50ML 50 ML IV SCH (12:45)
[2017-12-10 16:00] VITALS: BP 122/72
[2017-12-10] MEDS: Q-PUMP 1 EACH IRRIG SCH (17:00)
[2017-12-10 19:35] VITALS: BP 120/73
[2017-12-10 23:46] VITALS: BP 143/77
[2017-12-11] MEDS: TRAMADOL HCL 50 MG TABLET PO PRN ×2 (00:46→08:59)
[2017-12-11] MEDS: MEROPENEM 1 GM VIAL IVP SCH ×2 (01:28→08:57)
[2017-12-11 03:48] VITALS: BP 146/80
[2017-12-11 05:03] LABS: HEMATOCRIT 29.1 % (36-48); MEAN CORPUSCULAR HEMOGLOBIN 28.4 pg (27.0-33.0); MEAN CORPUSCULAR HGB CONC 35.2 g/dL (32.0-36.0); MEAN CORPUSCULAR VOLUME 80.8 fL (79-99); PLATELET COUNT (AUTO) 424 K/uL (130-400); RED CELL DISTRIBUTION WIDTH 14.9 % (11.0-15.5)
[2017-12-11 05:21] LABS: ALBUMIN 1.6 g/dL (3.5-5.0); BILIRUBIN,TOTAL 0.4 mg/dL (0.2-1.0); CREATININE 0.4 mg/dL (0.5-1.5); MAGNESIUM 1.6 mg/dL (1.80-2.40); PHOSPHORUS 3.5 mg/dL (2.5-4.9); TOTAL PROTEIN, SERUM 7.4 g/dL (6.0-8.3)
[2017-12-11 05:24] LABS: POTASSIUM 2.8 mmol/L (3.5-5.1)
[2017-12-11] MEDS ORDERED: POTASSIUM CHLORIDE 10 MEQ/TAB.SA PO ONE ×4 (05:32→06:16)
[2017-12-11] MEDS: INSULIN HUMULIN R 100 UNIT/ML 3ML SQ SCH ×2 (06:01→12:01)
[2017-12-11 07:00] VITALS: BP 159/88
[2017-12-11] MEDS: METOPROLOL TARTRATE 25 MG TAB PO SCH (08:58)
[2017-12-11] MEDS: PANTOPRAZOLE SODIUM 40 MG TABLET.DR PO SCH (08:58)
[2017-12-11] MEDS: POTASSIUM CHLORIDE 20 MEQ ERTAB PO PRN ×2 (08:58→11:37)
[2017-12-11 11:00] VITALS: BP 131/87
[2017-12-11] MEDS: VANCOMYCIN 1.25 GM in SODIUM CHLORIDE 0.9% 250 ML IV SCH (11:35)
== END 2017-12-11 15:10 | disposition home or self-care (01) | DRG 853 ==
LOC: EDH 18:50 → EDHIP 18:51 → OBSVTOIN 18:51 → 3CH 12-03 00:23 → 2DH 12-07 18:01
PROVIDERS: ADMIT Family Medicine; ATTEND Family Medicine
PROC: 0F9530Z Drainage of Right Hepatic Duct with Drainage Device, Percutaneous Approach (ICD-10-PCS; principal; 2017-12-03)
PROC: 0W9930Z Drainage of Right Pleural Cavity with Drainage Device, Percutaneous Approach (ICD-10-PCS; 2017-12-04)
PROC: 0B9 Respiratory System, Drainage (ICD-10-PCS; 2017-12-07 12:30)
PROC: 0B9 Respiratory System, Drainage (ICD-10-PCS; 2017-12-07 12:30)
DX: A41.9 Sepsis, unspecified organism (principal); J86.9 Pyothorax without fistula; K75.0 Abscess of liver; J90 Pleural effusion, not elsewhere classified; I27.20 Pulmonary hypertension, unspecified; J18.9 Pneumonia, unspecified organism; E46 Unspecified protein-calorie malnutrition; J98.11 Atelectasis; E11.9 Type 2 diabetes mellitus without complications; E66.9 Obesity, unspecified; F41.9 Anxiety disorder, unspecified; G89.29 Other chronic pain; I10 Essential (primary) hypertension; R65.20 Severe sepsis without septic shock; Z53.9 Procedure and treatment not carried out, unspecified reason; Z68.25 Body mass index [BMI] 25.0-25.9, adult; Z74.01 Bed confinement status
CPT/HCPCS: 10030; 32555; 36415; 49423; 49424; 71045; 71250; 74160; 74177; 75989; 76080; 76942; 80048; 80053; 80076; 80202; 81001; 82150; 82945; 82948; 83605; 83615; 83690; 83735; 83986; 84100; 85025; 85027; 85610; 85730; 86850; 86900; 86901; 86922; 87040; 87070; 87071; 87076; 87077; 87103; 87116; 87186; 87205; 87206; 88108; 88305; 88307; 89051; 94010; A4218; A7048; C1729; C1769; C1894; J0171; J0461; J0690; J0697; J1644; J1815; J2185; J2250; J2270; J2370; J2704; J2710; J2795; J3010; J3370; J3475; J3480; J3490; J7030; J7040; Q9967